=== PATIENT | female | born 1995 | race Hispanic/Latino ===

== ENCOUNTER 2024-06-03 09:53 | Day surgery (SDC) | payer MEDICAID ==
[~2024-06-03] VITALS: Ht 160 cm; Wt 65.3 kg
[2024-06-03] VITALS (13 sets, daily range): BP systolic 78–115; BP diastolic 57–80; PULSE 65–102; RESP 13–31
[~2024-06-03 09:53] MED LIST: AMYL1CAP61 PO; BUPIVACAINE/PF 0.25% 10ML VIAL IJ SCH; TRIAMCINOLONE ACETONIDE 40 MG/ML 1ML VIAL INJ SCH
[2024-06-03] MEDS ORDERED: 0.9%NACL 1000ML 1,000 ML IV ONE (11:14)
[2024-06-03] MEDS ORDERED: MIDAZOLAM HCL 1 MG/ML 2ML VIAL ONE (12:49)
[2024-06-03] MEDS ORDERED: PROPOFOL 10 MG/ML 20ML VIAL IV ONE ×3 (12:50→13:19)
[2024-06-03] MEDS ORDERED: LIDOCAINE PF 100MG/5ML (2%) SYRINGE 5ML ONE (12:50)
== END 2024-06-03 15:15 | disposition home or self-care (01) ==
LOC: DAH 09:53 → ENDO 09:53
PROVIDERS: ATTEND Internal Medicine
DX: K86.1 Other chronic pancreatitis (principal); K29.70 Gastritis, unspecified, without bleeding; R19.7 Diarrhea, unspecified; R12 Heartburn; F41.9 Anxiety disorder, unspecified; F32.A Depression, unspecified; J45.909 Unspecified asthma, uncomplicated; G40.909 Epilepsy, unspecified, not intractable, without status epilepticus; K31.84 Gastroparesis; U07.1 COVID-19; Z90.49 Acquired absence of other specified parts of digestive tract; Z98.890 Other specified postprocedural states; Z88.0 Allergy status to penicillin; Z88.8 Allergy status to other drugs, medicaments and biological substances; Z79.899 Other long term (current) drug therapy
CPT/HCPCS: 84703; 36415; 43253; J7030; J3490 ×4; J2250; J3301 ×2; J0665; A4620; A4649; A4215 ×2; A4223; A4657 ×3; A4222; A4221; A4663; A4606; J2001; J2704